=== PATIENT | female | born 1945 | race Hispanic/Latino ===

== ENCOUNTER → 2021-07-03 | Outpatient (CLI) | payer MEDICARE | END | disposition home or self-care (01) | LOC: SHCH 11:29 | PROVIDERS: ATTEND Internal Medicine Cardiovascular Disease | DX: I08.1 Rheumatic disorders of both mitral and tricuspid valves (principal); I11.9 Hypertensive heart disease without heart failure; I67.9 Cerebrovascular disease, unspecified; E11.9 Type 2 diabetes mellitus without complications | CPT/HCPCS: 93306 ==